=== PATIENT | female | born 1940 | race Caucasian/White ===

== ENCOUNTER 2017-09-03 09:14 | Emergency (ER) | payer MEDICARE, OTHER ==
[2017-09-03 09:48] VITALS: BP 139/64
[2017-09-03] MEDS ORDERED: DOXYcycline CAP(*) 100 MG PO ONE (10:13)
--- NOTE | 2017-09-03 10:20 | UC ---
Bite Injury/Animal HPI - HPI Summary HPI Summary: Patient accompanied by . She states 3 days ago she noticed something black fall off her shoulder and noticed a round rash with a central orifice with some itching associated with it. She had lyme testing as part of her annual exam with Dr. Perdomo which was negative. She suspects that if it was a tick it must have been attached at least overnight, but does not know since she was wearing a scarf. Denies constitutional symptoms such as fatigue, fever or any joint pain or swelling - History of Current Complaint Chief Complaint: LISETkin Stated Complaint: TICK BITE Time Seen by Provider: 09/03/17 09:51 Hx Obtained From: Patient ?: No Severity Currently: None Severity Initially: Mild Pain Intensity: 0 Onset/Duration: Lasting Days Type of Bite: Animal Character: Puncture Aggravating Factor(s): Nothing Alleviating Factor(s): Nothing Associated Signs And Symptoms: Positive: Negative Hx of Bite: Unprovoked Animal Available for Observation: No Animal Control Notified: No Body - Head: 1 - area of concentric erythema about 0.3cm in diameter - Allergies/Home Medications Allergies/Adverse Reactions: Allergies Allergy/AdvReac Type Severity Reaction Status Date / Time Amoxicillin Allergy Hives Verified 09/03/17 10:20 Shellfish Allergy Allergy Rash Verified 09/03/17 09:34 Sulfa Drugs Allergy Rash Verified 09/03/17 09:34 contrast dye Allergy Severe red streak Uncoded 09/03/17 09:34 up arm Home Medications: Home Medications Coenzyme Q10 (Ubidecarenone) [Co Q-10] 1 cap PO DAILY 09/03/17 [History Confirmed 09/03/17] Inulin [العراقي Fiber Good] 2 gm PO DAILY 09/03/17 [History Confirmed 09/03/17] Magnesium 1 tab PO DAILY 09/03/17 [History Confirmed 09/03/17] Premarin Pessary 1 udc VAGINAL DAILY 09/03/17 [History] Ranitidine HCl 1 cap PO BID 09/03/17 [History Confirmed 09/03/17] PMH/Surg Hx/FS Hx/Imm Hx Previously Healthy: Yes Endocrine History: Dyslipidemia Cardiovascular History: Hypertension - Surgical History Surgical History: Yes Surgery Procedure, Year, and Place: 01/2012 right knee meniscus repair. 2010 cataract surgery. tonsils at 13 years old - Social History Occupation: Retired Lives: With Family Alcohol Use: None Substance Use Type: None Smoking Status (MU): Never Smoked Tobacco Review of Systems Constitutional: Negative Skin: Negative Eyes: Negative ENT: Negative Respiratory: Negative Cardiovascular: Negative Gastrointestinal: Negative Genitourinary: Negative Motor: Negative Neurovascular: Negative Musculoskeletal: Negative Neurological: Negative Psychological: Negative Is Patient Immunocompromised?: No All Other Systems Reviewed And Are Negative: Yes Physical Exam Triage Information Reviewed: Yes Appearance: Well-Appearing Vital Signs: Initial Vital Signs Temp 97.2 F 09/03/17 09:41 Pulse 64 09/03/17 09:41 Resp 16 09/03/17 09:41 BP 139/64 09/03/17 09:41 Pulse Ox 100 09/03/17 09:41 Vital Signs Reviewed: Yes Neck: Positive: Supple Respiratory: Positive: Lungs clear Cardiovascular Exam: Normal Skin Exam: Other - circular concentric rash about 0.3cm in diameter with central orifice in right clavicular area Bite Injury Course/Dx - Differential Dx/Diagnosis Provider Diagnoses: tick bite Discharge - Discharge Plan Condition: Stable Disposition: HOME Discharge Disposition Comment: Prophylactic dose with doxycycline given. Follow up Lyme titers results Patient Education Materials: Tick Bite (ED), Lyme Disease (ED) Referrals: Elías Degroot MD [Medical Doctor] -
== END 2017-09-03 10:35 | disposition home or self-care (01) ==
LOC: UCEAST 09:14
DX: S40.261A Insect bite (nonvenomous) of right shoulder, initial encounter (principal); W57.XXXA Bitten or stung by nonvenomous insect and other nonvenomous arthropods, initial encounter; Y93.9 Activity, unspecified; Y92.9 Unspecified place or not applicable; Y99.9 Unspecified external cause status; I10 Essential (primary) hypertension; E78.5 Hyperlipidemia, unspecified; Z88.2 Allergy status to sulfonamides; Z88.1 Allergy status to other antibiotic agents; Z91.041 Radiographic dye allergy status; Z91.013 Allergy to seafood
CPT/HCPCS: 86618; 99202; A9270-GY; G0463

== ENCOUNTER 2018-04-08 11:06 | Emergency (ER) | payer MEDICARE, OTHER ==
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
[2018-04-08 13:20] VITALS: BP 151/86
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
== END 2018-04-08 13:17 | disposition home or self-care (01) ==
LOC: ED 11:06
DX: R51 Headache (principal); Z88.0 Allergy status to penicillin; Z88.2 Allergy status to sulfonamides; Z91.041 Radiographic dye allergy status; Z79.899 Other long term (current) drug therapy; E11.9 Type 2 diabetes mellitus without complications; I10 Essential (primary) hypertension
CPT/HCPCS: 70450; 72125; 99282

== ENCOUNTER 2018-11-19 16:28 | Emergency (ER) | payer MEDICARE, OTHER ==
--- NOTE | 2018-11-19 16:31 | UC ---
Lower Extremity/Ankle HPI - HPI Summary HPI Summary: 78 yo female presents with LEFT leg wound. She tells me that two days ago she was taking down ovidio decorations and hit her left yeager against something, unsure what. The next day noticed some increased redness to the wound and today had yellow drainage. She is concerned about infection. Has been applying antibiotic ointment. Denies fever. - History of Current Complaint Stated Complaint: LEG PAIN Time Seen by Provider: 11/19/18 16:30 Hx Obtained From: Patient Onset/Duration: Sudden Onset Severity Initially: Mild Severity Currently: Mild Pain Intensity: 4 Pain Scale Used: 0-10 Numeric - Allergies/Home Medications Allergies/Adverse Reactions: Allergies Allergy/AdvReac Type Severity Reaction Status Date / Time amoxicillin Allergy Hives Verified 04/08/18 11:13 Iodinated Contrast- Oral and Allergy Rash Verified 04/08/18 11:13 IV Dye shellfish derived Allergy Rash Verified 04/08/18 11:13 Sulfa (Sulfonamide Allergy Rash Verified 04/08/18 11:13 Antibiotics) Home Medications: Home Medications raNITIdine HCl [Ranitidine HCl] 150 mg 11/19/18 [History] PMH/Surg Hx/FS Hx/Imm Hx Cardiovascular History: Hypertension - Surgical History Surgical History: Yes Surgery Procedure, Year, and Place: 01/2012 right knee meniscus repair. 2009 cataract surgery. tonsils at 13 years old - Family History Known Family History: Positive: Hypertension - Social History Occupation: Retired Lives: With Family Alcohol Use: None Substance Use Type: None Smoking Status (MU): Never Smoked Tobacco Review of Systems All Other Systems Reviewed And Are Negative: Yes Constitutional: Positive: Negative Skin: Positive: Other - left yeager wound Respiratory: Positive: Negative Cardiovascular: Positive: Negative Neurovascular: Positive: Negative Neurological: Positive: Negative Psychological: Positive: Negative Physical Exam - Summary Physical Exam Summary: GENERAL: NAD. WDWN. No pain distress. SKIN: LEFT yeager: three 3-4mm diameter superficial abrasions with yellow crusting. Mild surrounding erythema extending 1.5cm around the abrasions. Mild TTP. No warmth, streaking, or edema. NECK: Supple. Nontender. No lymphadenopathy. CHEST: No accessory muscle use. Breathing comfortably and in no distress. CV: Pulses intact. Cap refill <2seconds NEURO: Alert. PSYCH: Age appropriate behavior. Triage Information Reviewed: Yes Vital Signs: Vital Signs: Temp Pulse Resp BP Pulse Ox 98.0 F 68 16 172/82 100 11/19/18 16:36 11/19/18 16:36 11/19/18 16:36 11/19/18 16:59 11/19/18 16:36 Vital Signs Reviewed: Yes Lower Extremity Course/Dx - Course Course Of Treatment: Wound infection. Will start her on keflex and advised to continue applying triple antibiotic ointment and covering with a band-aid until well healed. - Differential Dx/Diagnosis Provider Diagnosis: Wound infection Discharge - Sign-Out/Discharge Documenting (check all that apply): Patient Departure All imaging exams completed and their final reports reviewed: No Studies - Discharge Plan Condition: Stable Disposition: HOME Prescriptions: Cephalexin CAP* [Keflex CAP*] 500 mg PO BID #14 cap Patient Education Materials: Wound Infection (DC) Referrals: Lonnie Junior MD [Primary Care Provider] - Additional Instructions: If you develop a fever, shortness of breath, chest pain, new or worsening symptoms - please call your PCP or go to the ED. Your blood pressure was high at todays visit. Please see your primary provider within 4 weeks for recheck and re-evaluation. - Billing Disposition and Condition Condition: STABLE Disposition: Home - Attestation Statements Provider Attestation: Per institutional requirements, I have reviewed the chart, however, I was not consulted specifically or made aware of this patient by the midlevel provider. I did not personally evaluate, interact with , or disposition this patient.
[2018-11-19 16:59] VITALS: BP 172/82
[2018-11-19] MEDS ORDERED: Cephalexin CAP* 500 MG PO ONE (16:59)
== END 2018-11-19 17:05 | disposition home or self-care (01) ==
LOC: UCEAST 16:28
DX: S81.802A Unspecified open wound, left lower leg, initial encounter (principal); L08.9 Local infection of the skin and subcutaneous tissue, unspecified; W22.8XXA Striking against or struck by other objects, initial encounter; Y93.89 Activity, other specified; Y92.009 Unspecified place in unspecified non-institutional (private) residence as the place of occurrence of the external cause; Z88.0 Allergy status to penicillin; Z88.1 Allergy status to other antibiotic agents; Z91.041 Radiographic dye allergy status; I10 Essential (primary) hypertension
CPT/HCPCS: 99202; A9270-GY; G0463

== ENCOUNTER 2019-02-21 17:14 | Emergency (ER) | payer MEDICARE, OTHER ==
--- OUTSIDE RECORDS SUMMARY | 2019-02-21 17:27 | XMS REPORT | Continuity of Care Document ---
:1940 External Reference #:[id number] Author Name Jerson Benítez M.D. Address [address] [place] [id number] Care Team Providers Name Role Phone Lonnie Junior M.D. Primary Care Physician Unavailable Payers Date Identification Numbers Payment Provider Subscriber Policy Number: [id number] Medicare - [facility] Ernie Rodríguez PayID: [id number] [address] [place] [address] Policy Number: [id number] [place] [address] Ernie Rodríguez PayID: [id number] [address] [place] [address] Advance Directives Description No Information Available Problems Date Description Provider Status Onset: 01/02/2015 Pure hypercholesterolemia Jerson Benítez M.D. Active Onset: Osteoporosis Active Onset: Arthritis Active Onset: 01/05/2016 Retinal detachment Jerson Benítez M.D. Active Onset: 01/05/2016 Presence of intraocular lens Jerson Benítez M.D. Active Onset: 01/14/2017 Other secondary cataract, left eye Jerson Benítez M.D. Active Onset: 09/12/2017 Vitreous degeneration Jerson Benítez M.D. Active Family History Date Family Member(s) Observation Comments General Mother Cataract Social History Type Date Description Comments Sex Unknown Marital Status Occupation Homemaker ETOH Use Denies alcohol use Tobacco Use Start: Unknown Patient has never smoked Recreational Drug Use Denies Drug Use Smoking Status Reviewed: 03/19/19 Patient has never smoked Allergies, Adverse Reactions, Alerts Date Description Reaction Status Severity Comments 01/02/2015 Sulfa Antibiotics Active 01/02/2015 Shellfish Active 01/14/2017 Amoxicillin Active Medications Medication Date Status Form Strength Qnty SIG Indications Ordering Provider Vitamin D3 Active Capsules 5000Unit 1 weekly Unknown Maximum 000 Strength Calcium 1000 + Active Tablets 1000-800mg Unknown D 000 -Unit Clarinex Active Tablets 5mg as Unknown 000 needed for flying Premarin Active Cream 0.625mg/GM Unknown 000 Fiberchoice Active Chewtabs 2gm Unknown 000 Coq-10 Active Capsules 400mg Unknown 000 Vitamin C ER Active Capsules ER 500mg Unknown 000 Vitamin B-1 Active Tablets 100mg Unknown 000 Fluticasone Active Suspension 50mcg/Act [place], Propionate 000 Lonnie M.D. Losartan Active Tablets 50mg [place], Potassium 000 Lonnie M.D. Lipitor Hx Tablets 10mg Unknown 000 - 017 Centrum Silver Hx Tablets Unknown Ultra Womens 000 - 016 Ranitidine HCL Hx Tablets 150mg [place], 000 - Lonnie M.D. 019 Losartan Hx Tablets 50mg [place], Potassium 000 - Lonnie M.D. 017 Amoxicillin Hx Capsules 500mg Unknown 000 - 017 Lisinopril Hx Tablets 10mg [place], 000 - Lonnie M.D. 017 Viactiv Hx Chewtabs 500-500-40 Unknown 000 - mg-Unt-mcg 017 Immunizations Description No Information Available Vital Signs Description No Information Available Results Description No Information Available Procedures Date Code Description Status 01/23/2018 78180 Est Patient Comprehensive Exam Completed 09/12/2017 53428 Est Patient Comprehensive Exam Completed 01/14/2017 55102 Est Patient Comprehensive Exam Completed 01/05/2016 95089 Est Patient Comprehensive Exam Completed 01/02/2015 34138 Est Patient Comprehensive Exam Completed 01/01/2014 30626 Est Patient Comprehensive Exam Completed 12/26/2012 41083 Est Patient Comprehensive Exam Completed 12/23/2011 44294 Est Patient Comprehensive Exam Completed 12/15/2010 72512 Repair Detached Retina, Photocoagulation Completed 12/10/2010 32220 Est Patient Comprehensive Exam Completed 11/26/2009 98818 Extracapsular Cataract Extraction W/Intraocular Lens Completed 11/20/2009 64377 Ophthalmic Biometry Completed 11/19/2009 06046 Extracapsular Cataract Extraction W/Intraocular Lens Completed 11/13/2009 34416 Ophthalmic Biometry Completed 11/13/2009 64663 Scanning Laser W/Interp And Report Completed 10/08/2009 70878 New Patient Comprehensive Exam Completed Encounters Type Date Location Provider Dx Diagnosis Office Visit 11/13/2009 Jerson Benítez, Jerson Benítez, 366.16 Senile Nuclear 10:30a , ashkan [place] Sclerosis / Cataract Plan of Treatment 01/23/2019 - Jerson Benítez M.D.H33.8 Other retinal detachmentsComments: Smoking can increase the risk of developing or worsening any eye related disease , as well as affect your overall health. If you are a smoker, we strongly recommend that you quit.If you are not a smoker, we strongly recommend that you do not start. The area in the right retina that was treated for a hole/tear looks stable. I do not see any new holes or tears in your right retina at this time. If you notice any new flashes of light or a sudden onset of floaters in your vision, please give our office a call immediately to schedule an appointment.Follow up:1 Year Follow Up You can expect to have your eyes dilated at your next visit. If Dr. Benítez orders any additional testing, it may require extra time. We recommend that you bring sunglasses, as dilationdrops often make you light sensitive until they wear off. We always recommend you bring someone to drive you home if you are uncomfortable driving with your eyes dilated. If you have any questions before your next visit, feel free to call our office at .[phone] Vitreous degeneration, bilateralComments: You have a Posterior Vitreous Detachment. If you have any changes in your floaters or flashing lights, please contact this office.Z96.1 Presence of intraocular lensComments:The artificial lens implants in both eyes appear to be stable at this time.
[2019-02-21 18:04] LABS: ABS Basophils 0 10^3/ul (0-0.2); ABS Eosinophils 0.4 10^3/ul (0-0.6); ABS Lymphocytes 2.4 10^3/ul (1.0-4.8); ABS Monocytes 0.6 10^3/ul (0-0.8); ABS Neutrophils 2.9 10^3/ul (1.5-7.7); ABS Nucleated RBC 0 10^3/ul; Eosinophil % 6.5 %; Hematocrit 41 % (33-41); Hemoglobin 13.5 g/dL (12.0-16.0); Lymphocyte % 37.8 %; Mean Corpuscular HGB Conc 33 g/dL (31-36); Mean Corpuscular Hemoglobin 29 pg (27-31); Mean Corpuscular Volume 89 fL (80-97); Mean Platelet Volume 8.7 fL (7.4-10.4); Nucleated Red Blood Cells % 0.1; Platelet Count 251 10^3/uL (150-450); Red Blood Count 4.59 10^6 /uL (3.70-4.87); Red Cell Distribution Width 13 % (10.5-15); White Blood Count 6.3 10^3/uL (3.5-10.8)
[2019-02-21 18:21] LABS: ALT 14 U/L (7-52); AST 18 U/L (13-39); Albumin/Globulin Ratio 1.4 (1-3); Alkaline Phosphatase 76 U/L (34-104); Anion Gap 5 mmol/L (2-11); BUN/Creatinine Ratio 15.3 (8-20); Blood Urea Nitrogen 13 mg/dL (6-24); CO2 Carbon Dioxide 28 mmol/L (22-32); Calcium 9.7 mg/dL (8.6-10.3); Chloride 106 mmol/L (101-111); EGFR African American 78.3 (>60); EGFR Non-African American 64.7 (>60); Globulin 2.9 g/dL (2-4); Glucose 103 mg/dL (70-100); Potassium 4.2 mmol/L (3.5-5.0); Sodium 139 mmol/L (135-145); Total Protein 6.9 g/dL (6.4-8.9)
--- NOTE | 2019-02-21 19:24 | ED ---
Abdominal Pain/Female - HPI Summary HPI Summary: A 79 y/o F presents to ED with c/o R-sided abd pain onset this AM. The pain wraps around her R-side and goes to her back. Pain is rated a 9 out of 10. Associated sx: mild nausea. Denies urinary sx, constipation, diarrhea. She ate soup for lunch. Yesterday, she was at baseline. Denies previous abd surgeries. PMHx: colitis, DM. - History of Current Complaint Chief Complaint: EDAbdPain Stated Complaint: SEVERE STOMACH ACHE PER PT Time Seen by Provider: 02/21/19 19:20 Hx Obtained From: Patient, Family/Hourly Team Members - Hx Last Menstrual Period: postmenopausal Onset/Duration: Lasting Hours, Still Present Timing: Constant Severity Initially: Moderate Severity Currently: Severe Pain Intensity: 9 Pain Scale Used: 0-10 Numeric Location: Discrete At: RUQ, Discrete At: RLQ Radiates: Yes Radiates to: Back - R-side Aggravating Factor(s): Other: - standing upright Associated Signs and Symptoms: Positive: Nausea - mild. Negative: Constipation , Urinary Symptoms, Diarrhea Allergies/Adverse Reactions: Allergies Allergy/AdvReac Type Severity Reaction Status Date / Time amoxicillin Allergy Hives Verified 02/21/19 17:23 Iodinated Contrast- Oral and Allergy Rash Verified 02/21/19 17:23 IV Dye shellfish derived Allergy Rash Verified 02/21/19 17:23 Sulfa (Sulfonamide Allergy Rash Verified 02/21/19 17:23 Antibiotics) PMH/Surg Hx/FS Hx/Imm Hx Previously Healthy: No Endocrine/Hematology History: Reports: Hx Diabetes - diet controlled 10 yrs ago/ BORDERLINE Denies: Hx Thyroid Disease Cardiovascular History: Reports: Hx Hypertension Respiratory History: Denies: Hx Asthma, Hx Chronic Obstructive Pulmonary Disease (COPD) GI History: Denies: Hx Ulcer - Surgical History Surgery Procedure, Year, and Place: 01/2012 right knee meniscus repair. 2010 cataract surgery. tonsils at 13 years old - Immunization History Date of Tetanus Vaccine: unsure Date of Influenza Vaccine: never Infectious Disease History: No Infectious Disease History: Denies: Hx Clostridium Difficile, Hx Hepatitis, Hx Human Immunodeficiency Virus (HIV), Hx of Known/Suspected MRSA, Hx Shingles, Hx Tuberculosis, Hx Known/ Suspected VRE, Hx Known/Suspected VRSA, History Other Infectious Disease, Traveled Outside the [place] in Last 30 Days - Family History Known Family History: Positive: Hypertension - Social History Occupation: Retired Lives: With Family Alcohol Use: None Hx Substance Use: No Substance Use Type: Reports: None Hx Tobacco Use: No Smoking Status (MU): Never Smoked Tobacco Review of Systems Positive: Abdominal Pain, Nausea. Negative: Diarrhea, Other - neg: constipation Negative: dysuria, hematuria Musculoskeletal: Other - pos: back pain (radiating from abd) All Other Systems Reviewed And Are Negative: Yes Physical Exam - Summary Physical Exam Summary: Appearance: Well-appearing, Well-nourished, elderly F observed to be walking hunched over in the room Skin: Warm, dry, no obvious rash Eyes: sclera anicteric, no conjunctival pallor ENT: mucous membranes moist, pharynx appears normal Neck: Supple, nontender Respiratory: Clear to auscultation, no signs of respiratory distress Cardiovascular: Normal S1, S2. No murmurs. Normal distal pulses in tibial and radial bilaterally. Abdomen: Soft, minimal tenderness in R-side of abd, no peritoneal signs, normal active bowel sounds. No pain with rotation of hip. Musculoskeletal: Normal, Strength/ROM Intact Neurological: A&Ox3, awake and alert, mentation is normal, speech is fluent and appropriate Psychiatric: affect is normal, does not appear anxious or depressed Triage Information Reviewed: Yes Vital Signs On Initial Exam: Initial Vitals Temp Pulse Resp BP Pulse Ox 97.5 F 58 18 180/79 99 02/21/19 17:18 02/21/19 17:18 02/21/19 17:18 02/21/19 17:18 02/21/19 17:18 Vital Signs Reviewed: Yes Diagnostics - Vital Signs Vital Signs Temp Pulse Resp BP Pulse Ox 02/21/19 17:18 97.5 F 58 18 180/79 99 - Laboratory Lab Results: Lab Results 02/21/19 02/21/19 02/21/19 Range/Units 17:56 17:56 17:56 WBC 6.3 (3.5-10.8) 10^3/uL RBC 4.59 (3.70-4.87) 10^6 /uL Hgb 13.5 (12.0-16.0) g/dL Hct 41 (33-41) % MCV 89 (80-97) fL MCH 29 (27-31) pg MCHC 33 (31-36) g/dL RDW 13 (10.5-15) % Plt Count 251 (150-450) 10^3/uL MPV 8.7 (7.4-10.4) fL Neut % (Auto) 45.3 % Lymph % (Auto) 37.8 % [place] % (Auto) 9.7 % Eos % (Auto) 6.5 % Baso % (Auto) 0.7 % Absolute Neuts (auto) 2.9 (1.5-7.7) 10^3/ul Absolute Lymphs (auto) 2.4 (1.0-4.8) 10^3/ul Absolute Monos (auto) 0.6 (0-0.8) 10^3/ul Absolute Eos (auto) 0.4 (0-0.6) 10^3/ul Absolute Basos (auto) 0 (0-0.2) 10^3/ul Absolute Nucleated RBC 0 10^3/ul Nucleated RBC % 0.1 Sodium 139 (135-145) mmol/L Potassium 4.2 (3.5-5.0) mmol/L Chloride 106 (101-111) mmol/L Carbon Dioxide 28 (22-32) mmol/L Anion Gap 5 (2-11) mmol/L BUN 13 (6-24) mg/dL Creatinine 0.85 (0.51-0.95) mg/dL Est GFR ( Amer) 78.3 (>60) Est GFR (Non-Af Amer) 64.7 (>60) BUN/Creatinine Ratio 15.3 (8-20) Glucose 103 H (70-100) mg/dL Lactic Acid 0.5 (0.5-2.0) mmol/L Calcium 9.7 (8.6-10.3) mg/dL Total Bilirubin 0.40 (0.2-1.0) mg/dL AST 18 (13-39) U/L ALT 14 (7-52) U/L Alkaline Phosphatase 76 (34-104) U/L Total Protein 6.9 (6.4-8.9) g/dL Albumin 4.0 (3.2-5.2) g/dL Globulin 2.9 (2-4) g/dL Albumin/Globulin Ratio 1.4 (1-3) Lipase < 10 L (11.0-82.0) U/L Result Diagrams: 02/21/19 17:56 02/21/19 17:56 Lab Statement: Any lab studies that have been ordered have been reviewed, and results considered in the medical decision making process. Re-Evaluation - Re-Evaluation 1 Re-Evaluation Time: 21:53 Abdominal Pain Fem Course/Dx - Course Course Of Treatment: Pt is a 79 y/o F presents with severe R-sided abd pain wrapping to her back onset this AM. Lab work is unremarkable. UA shows trace ketones, 1+ bacteria, 1+ leukocyte esterase. PT WILL BE SIGNED OUT TO DR. PACE AT SHIFT CHANGE PENDING A/P CT. - Diagnoses Provider Diagnoses: UTI (urinary tract infection), Abdominal pain Discharge - Sign-Out/Discharge Documenting (check all that apply): Sign-Out Patient Signing out patient TO: Rosa Pace - pending A/P CT Patient Received Moderate/Deep Sedation with Procedure: No - Discharge Plan Condition: Stable Disposition: HOME Prescriptions: Levofloxacin TAB* [Levaquin TAB*] 500 mg PO DAILY #3 tab traMADol TAB* [Ultram*] 50 mg PO Q6HR PRN #14 tab MDD 4 PRN Reason: Pain Patient Education Materials: Urinary Tract Infection in Women (ED), Acute Abdominal Pain (ED) Referrals: Lonnie Junior MD [Primary Care Provider] - Additional Instructions: RETURN TO THE EMERGENCY DEPARTMENT FOR CHANGING OR WORSENING SYMPTOMS.FOLLOW UP WITH YOUR PRIMARY CARE PROVIDER WITHIN ONE TO TWO DAYS. - Billing Disposition and Condition Condition: STABLE Disposition: Home - Attestation Statements Document Initiated by Zia: Yes Documenting Scribe: Elzbieta Damon Provider For Whom Zia is Documenting (Include Credential): Dr. Ray Galvan MD Scribe Attestation: Raymond, Elzbieta Damon, scribed for Dr. Ray Galvan MD on 02/24/19 at 0647. Scribe Documentation Reviewed: Yes Provider Attestation: The documentation as recorded by the Elzbieta price accurately reflects the service I personally performed and the decisions made by me, Dr. Ray Galvan MD Status of Scribe Document: Viewed
[2019-02-21] MEDS ORDERED: NS 0.9% 1000 ML** 2,000 ML IV ONE (19:25)
[2019-02-21] MEDS ORDERED: Morphine 4 MG/ML VIAL (1 ml) 4 MG/ML VIAL IV ONE (19:25)
[2019-02-21 21:20] LABS: Urine Appearance Clear; Urine Bacteria 1+ (Absent); Urine Bilirubin Negative (Negative); Urine Blood Negative (Negative); Urine Color Straw; Urine Glucose Negative (Negative); Urine Ketones Trace (Negative); Urine Nitrite Negative (Negative); Urine Protein Negative (Negative); Urine Red Blood Cell Trace(0-2/hpf) (Absent); Urine Specific Gravity 1.004 (1.010-1.030); Urine Urobilinogen Negative (Negative); Urine White Blood Cell Trace(0-5/hpf) (Absent)
[2019-02-21] MEDS ORDERED: Levofloxacin TAB* 500 MG PO ONE (23:41)
--- NOTE | 2019-02-21 23:50 | ED ---
Progress - Progress Note Progress Note: The patient is a 79 year old female who is presenting to the [facility] with a chief complaint of abd pain. Patient was received as a sign out by Dr. Galvan to Dr. Pace and will be pending disposition and CT A/P. - Results/Orders Results/Orders: CT A/P as per radiologist report reveals 1. Anatomically dilated appendix with no additional findings of acute appendicitis. 2. Distal colonic diverticulosis. The ED Physician has reviewed this radiology report. Re-Evaluation - Re-Evaluation 1 Re-Evaluation Time: 21:53 Course/Dx - Course Course Of Treatment: PT is a 79 year old female who is presenting to the [facility] with abd pain. We reviewed the radiology repots of the Abd/Pel CT as well as her lab work up. Upon evaluation, the patient states that she had been raking leaves, and lifting. Thus, the pain could musculoskeletal pain. We recommended a Tylenol treatment with Levaquin and Ultram. The patient will be discharged home with a recommendation to follow up with her primary care physician. The dx will be abd pain and UTI. Discharge - Discharge Plan Prescriptions: Levofloxacin TAB* [Levaquin TAB*] 500 mg PO DAILY #3 tab traMADol TAB* [Ultram*] 50 mg PO Q6HR PRN #14 tab MDD 4 PRN Reason: Pain Referrals: Lonnie Junior MD [Primary Care Provider] - - Attestation Statements Document Initiated by Scribe: Yes
[2019-02-22 00:06] VITALS: BP 160/85
== END 2019-02-22 00:22 | disposition home or self-care (01) ==
LOC: ED 17:14
DX: N39.0 Urinary tract infection, site not specified (principal); K57.90 Diverticulosis of intestine, part unspecified, without perforation or abscess without bleeding; I10 Essential (primary) hypertension; R73.03 Prediabetes; Z88.0 Allergy status to penicillin; Z91.041 Radiographic dye allergy status; Z88.2 Allergy status to sulfonamides
CPT/HCPCS: 36415; 74176; 80053; 81003; 81015; 83605; 83690; 85025; 87086; 96361; 96374; 99283; J2270

== ENCOUNTER 2019-08-29 09:58 | Emergency (ER) | payer MEDICARE, OTHER ==
[2019-08-29 10:17] VITALS: BP 137/77
--- NOTE | 2019-08-29 10:41 | UC ---
Throat Pain/Nasal Te HPI - HPI Summary HPI Summary: 79-year-old woman comes in with a chief complaint of cough runny nose and chest congestion. Reports a runny nose and postnasal drip for several weeks since gone into her chest. She's coughing a lot bringing up sputum. No fevers measured. Feels like she might have bronchitis. No COPD or asthma. Patient does have venous insufficiency and has been having left calf pain. No chest pain. No prior history of DVT has thromboses of blood clots - History of Current Complaint Chief Complaint: UCGeneralIllness Stated Complaint: COUGH Time Seen by Provider: 08/29/19 10:24 Hx Last Menstrual Period: postmenopausal Pain Intensity: 1 - Allergies/Home Medications Allergies/Adverse Reactions: Allergies Allergy/AdvReac Type Severity Reaction Status Date / Time amoxicillin Allergy Hives Verified 08/29/19 10:06 Iodinated Contrast Media Allergy Rash Verified 08/29/19 10:06 [Iodinated Contrast- Oral and IV Dye] shellfish derived Allergy Rash Verified 08/29/19 10:06 Sulfa (Sulfonamide Allergy Rash Verified 08/29/19 10:06 Antibiotics) PMH/Surg Hx/FS Hx/Imm Hx Previously Healthy: Yes - VENOUS INSUFFICIENCY Cardiovascular History: Hypertension - Surgical History Surgical History: Yes Surgery Procedure, Year, and Place: 01/2012 right knee meniscus repair. 2009 cataract surgery. tonsils at 13 years old - Family History Known Family History: Positive: Hypertension - Social History Alcohol Use: None Substance Use Type: None Smoking Status (MU): Never Smoked Tobacco Review of Systems All Other Systems Reviewed And Are Negative: Yes Constitutional: Positive: Negative Skin: Positive: Negative Eyes: Positive: Negative ENT: Positive: Nasal Discharge, Sinus Congestion Respiratory: Positive: Cough, Other - SEE HPI Cardiovascular: Positive: Negative Gastrointestinal: Positive: Negative Motor: Positive: Negative Neurovascular: Positive: Negative Musculoskeletal: Positive: Calf Tenderness - LEFT Neurological: Positive: Negative Psychological: Positive: Negative Is Patient Immunocompromised?: No Physical Exam Triage Information Reviewed: Yes Appearance: Well-Appearing, No Pain Distress, Well-Nourished Vital Signs: Initial Vital Signs Temp 98.6 F 08/29/19 10:10 Pulse 63 08/29/19 10:10 Resp 20 08/29/19 10:10 BP 137/77 08/29/19 10:10 Pulse Ox 100 08/29/19 10:10 Vital Signs Reviewed: Yes Eye Exam: Normal Eyes: Positive: Conjunctiva Clear ENT: Positive: Pharyngeal erythema, Nasal congestion, Nasal drainage, TMs normal Neck: Positive: Supple Respiratory: Positive: Lungs clear, Normal breath sounds, No respiratory distress Cardiovascular: Positive: RRR Musculoskeletal: Positive: Strength Intact, ROM Intact Neurological: Positive: Alert, Muscle Tone Normal Psychological: Positive: Normal Response To Family, Age Appropriate Behavior Skin Exam: Normal Throat Pain/Nasal Course/Dx - Course Course Of Treatment: Stereo Operator: Jarrett Gerber C ([id number]) Business Practices Supervisor: BROOK ( NUANCE) Report Date: 08/29/2019 10:33:00 Report Status: Final ====== Start of Report Content Patient Name: CIARA MANUEL Medical Record#: [id number] Ordering Physician: Mendoza Chu MD Acct.#: [id number] : 1940 Age: 79 Sex: F Location: [facility] Exam Date: 08/29/19 1033 ADM Status: REG ER Order Information: VL LOWER EXT VEINS LEFT Accession Number: [id number] CPT: 13244 INDICATION: Medial LEFT thigh and posterior calf pain at night. Assess for DVT. COMPARISON: No relevant prior exams available on the [facility] PACS for comparison. TECHNIQUE: Man scale, color Doppler, and spectral analysis of the deep veins of the LEFT lower extremity. Vessel compression, phasicity, and augmentation assessed. REPORT: The LEFT common femoral, great saphenous, profunda femoral, femoral, popliteal, peroneal, and posterior tibial veins are patent. Patency of the RIGHT common femoral vein documented. IMPRESSION: No evidence for LEFT lower extremity deep venous thrombosis. <Electronically signed by Jarrett Gerber MD in OV> 08/29/191118 Dictated By: Jarrett Gerber MD Dictated Date/Time: 08/29/191116 Transcribed Date/Time: 1116 Copy to: CC:Lonnie Junior MD; Mendoza Chu MD Imaging - [facility] - [facility] - [facility] [address] [facility], [place] [id number] [place] [id number] ph [phone]) ph ([phone]) ph ([phone]) ===== End of Report Content - Differential Dx/Diagnosis Provider Diagnosis: Bronchitis, Pain of left calf Discharge ED - Sign-Out/Discharge Documenting (check all that apply): Patient Departure All imaging exams completed and their final reports reviewed: Yes - Discharge Plan Condition: Stable Disposition: HOME Prescriptions: Azithromyxin DARRYN (NF) [Z-Darryn (Zithromax) 250 mg tabs #6] 2 tab PO .TODAY, THEN 1 DAILY #6 tab Patient Education Materials: Acute Bronchitis (ED), Venous Insufficiency (DC), Leg Cramps (ED) Referrals: Lonnie Junior MD [Primary Care Provider] - Additional Instructions: FOLLOW UP WITH YOUR DOCTOR IF NOT COMPLETELY IMPROVED. GET RECHECKED SOONER IF YOUR CONDITION WORSENS OR ANY QUESTIONS OR CONCERNS. - Billing Disposition and Condition Condition: STABLE Disposition: Home
== END 2019-08-29 12:07 | disposition home or self-care (01) ==
LOC: UCEAST 09:58
DX: J40 Bronchitis, not specified as acute or chronic (principal); R09.81 Nasal congestion; R09.89 Other specified symptoms and signs involving the circulatory and respiratory systems; M79.662 Pain in left lower leg; I10 Essential (primary) hypertension; Z88.0 Allergy status to penicillin; Z91.041 Radiographic dye allergy status; Z91.013 Allergy to seafood; Z88.2 Allergy status to sulfonamides
CPT/HCPCS: 99212; G0463